=== PATIENT | female | born 1950 | race Asian ===

== ENCOUNTER 2019-12-23 13:53 | Outpatient (CLI) | payer MEDICARE, OTHER | END 2019-12-23 13:54 | disposition home or self-care (01) | LOC: LAB 13:53 | PROVIDERS: ATTEND Ophthalmology | DX: Z01.818 Encounter for other preprocedural examination (principal); H25.811 Combined forms of age-related cataract, right eye; Z20.828 Contact with and (suspected) exposure to other viral communicable diseases ==

== ENCOUNTER 2019-12-26 06:46 | Day surgery (SDC) | payer MEDICARE, OTHER ==
[~2019-12-26 06:46] MED LIST: CYCLOPENTOLATE 1% OPHTH DROPS 2 ML ONE; KETOROLAC 0.45% OPHTH DROPS ONE; PHENYLEPHRINE 2.5% OPHTH 2 ML DROPS ONE; PROPARACAINE 0.5% OPHTH DROPS 15 ML ONE
[2019-12-26] MEDS ORDERED: MIDAZOLAM 2 MG/2 ML VIAL IVP ONE (06:47)
[2019-12-26] MEDS ORDERED: fentaNYL 100 MCG/2 ML VIAL IVP ONE (06:47)
[2019-12-26] MEDS ORDERED: LACTATED RINGERS 500 ML IV ONE ×3 (07:05→08:48)
--- NOTE | 2019-12-26 07:35 | ANESTHESIA ---
Pre-Anesthesia VS, & Labs - Diagnosis RIGHT CATARACT - Procedure Right CATIOL Vital Signs: Temp Pulse Resp BP Pulse Ox 36.0 C L 67 16 133/73 H 100 12/26/19 07:08 12/26/19 07:08 12/26/19 07:08 12/26/19 07:08 12/26/19 07:08 Height 4 ft 11 in Weight (kg) 45.3 kg - NPO >8 hours - Is Patient ?: No - Lab Results Current Lab Results: Laboratory Tests 12/26/19 07:15: POC Whole Bld Glucose 98 Home Medications and Allergies Home Medications: Ambulatory Orders Loratadine [Claritin] 10 mg PO DAILY 12/25/19 Pantoprazole [Protonix] 40 mg PO DAILY 12/25/19 Aspirin [Aspir-Low] 81 mg PO DAILY 01/15/16 Simvastatin 20 mg PO DAILY 01/15/16 Loratadine [Claritin] 10 mg PO DAILY 12/25/19 Pantoprazole [Protonix] 40 mg PO DAILY 12/25/19 Allergies/Adverse Reactions: Allergies Allergy/AdvReac Type Severity Reaction Status Date / Time No Known Drug Allergies Allergy Verified 12/26/19 07:16 Anes History & Medical History - Anesthetic History Anesthesia Complications: reports: No previous complications Family history of Anesthesia Complications: Denies Family history of Malignant Hyperthermia: Denies - Medical History Cardiovascular: reports: High cholesterol Pulmonary: reports: None Gastrointestinal: reports: GERD, Colon polyps Urinary: reports: None Musculoskeletal: reports: None Endocrine/Autoimmune: reports: Type 2 diabetes (DIET CONTROLLED) Skin: reports: None Smoking Status: Never smoker Psychosocial: reports: No issues indicated - Surgical History Gynecologic: Hysterectomy Orthopedic: Knee replacement, Other Exam General: Alert, Oriented x3 Dental: Partials Upper Mouth Opening: Greater than 4 Fingerbreadths Neck Mobility: Normal Mallampati classification: I Thyromental Distance: 4-6 cm Respiratory: Lungs clear Cardiovascular: Regular rate, Normal S1, Normal S2 Plan Anesthesia Type: MAC Consent for Procedure(s) Verified and Reviewed: Yes Code Status: Attempt Resuscitation ASA classification: 2-Mild systemic disease Is this case an emergency?: No
[2019-12-26] MEDS ORDERED: BRIMONIDINE 0.2% OPHTH DROPS 5 ML ONE (07:53)
[2019-12-26] MEDS ORDERED: BSS/LIDOCAINE/EPINEPHRINE 1 ML SYRINGE ONE (07:53)
[2019-12-26] MEDS ORDERED: EPINEPHrine 1 MG/ML AMP ONE (07:53)
[2019-12-26] MEDS ORDERED: VANCOMYCIN OPHTHALMI 8MG/0.8ML 8 MG/0.8 ML SYRINGE IO ONE ×2 (07:53→08:05)
[2019-12-26] MEDS ORDERED: TRIAMCIN/MOXIFLOX OPHTHALMIC 0.6 ML VIAL IO ONE ×2 (07:53→08:06)
[2019-12-26] MEDS ORDERED: TIMOLOL 0.5% OPHTH DROPS ONE (07:53)
[2019-12-26] MEDS ORDERED: CHONDR SULF/HYALURONATE SYRINGE IO ONE (08:03)
[2019-12-26] MEDS ORDERED: EPINEPHrine 1 MG/ML AMP IR ONE (08:03)
[2019-12-26] MEDS ORDERED: BRIMONIDINE 0.2% OPHTH DROPS 5 ML OPTH ONE (08:03)
[2019-12-26] MEDS ORDERED: BSS/LIDOCAINE/EPINEPHRINE 1 ML SYRINGE IO ONE (08:03)
[2019-12-26] MEDS ORDERED: TIMOLOL 0.5% OPHTH DROPS OPTH ONE (08:03)
[2019-12-26] MEDS ORDERED: PROPARACAINE 0.5% OPHTH DROPS 15 ML EACHEYE ONE (08:04)
--- NOTE | 2019-12-26 09:25 | PREOP HISTORY & PHYSICAL ---
DATE OF SERVICE: 12/26/2019 Physician: Roberto Mojica MD PREOPERATIVE DIAGNOSIS: Visually significant cataract, right eye. This was her first cataract surge ry. POSTOPERATIVE DIAGNOSIS: Visually significant cataract, right eye. This was her first cataract surg ryder. OF PROCEDURE: Phacoemulsification with posterior chamber intraocular lens implant, right eye. SURGEON: Roberto Mojica MD ANESTHESIA: Monitored anesthesia care. COMPLICATIONS: None. OPERATIVE INDICATIONS: This is a 69-year-old woman with progressive vision loss in the right eye due to 2-3+ nuclear sclerotic, trace cortical and 2+ posterior subcapsular cataract. Best corrected vis ual acuity was 20/30, with glare to hand motion vision in the right eye. Indications for surgery are overall decrease in vision, difficulty seeing words on a computer screen, difficulty seeing words, c losed caption or game scores on TV, difficulty seeing street signs, difficulty driving in low light o r at night, difficulty driving at night because of headlights from other vehicles, and difficulty wit h glare or bright lights in any situation. She was consented at length concerning risks and benefits of cataract surgery, after which she expressed a desire to proceed with surgery. OPERATIVE PROCEDURE: The patient was taken to OR #3 and placed under monitored anesthesia care. Popeye gical timeout was conducted confirming correct patient, correct procedure, and correct surgical site. She was given topical anesthesia, then prepped and draped in the usual sterile fashion. The eye wa s entered at the 12 and 9 o'clock positions. Intracameral Shugarcaine was injected into the anterior chamber, followed by Viscoat. A continuous-tear curvilinear capsulorrhexis was performed. The nucl eus was hydrodissected and phacoemulsified. Cortex was evacuated using automated infusion and aspira tion. Provisc was injected in the capsular bag, and a 21.5 diopter intraocular lens inserted in the bag. Infusion and aspiration was used to evacuate the viscoelastic materials. The eye was inflated to physiologic pressure using balanced salt solution and found to be watertight. Approximately 0.25 mL of a mixture of triamcinolone and moxifloxacin was injected trans sclerally into the vitreous in t he inferotemporal quadrant. An additional 0.55 mL of a mixture of triamcinolone, moxifloxacin and va ncomycin was injected subconjunctivally in the superior quadrant for infection and inflammation proph ylaxis. Wound integrity was checked with Weck-Verenice sponges. The patient was taken from the Operating Room in good condition and given postoperative instructions. TD: 12/26/2019 08:27
[2019-12-26 11:01] VITALS: BP 117/62
== END 2019-12-26 06:47 | disposition home or self-care (01) ==
LOC: SDS 06:46
PROVIDERS: ATTEND Ophthalmology
PROC: 08RJ3JZ Replacement of Right Lens with Synthetic Substitute, Percutaneous Approach (ICD-10-PCS; principal; 2019-12-26 08:00)
DX: E11.36 Type 2 diabetes mellitus with diabetic cataract (principal); H25.811 Combined forms of age-related cataract, right eye; Z83.511 Family history of glaucoma
CPT/HCPCS: 66984; A9270; J3490; V2632

== ENCOUNTER 2020-01-20 10:21 | Outpatient (CLI) | payer MEDICARE, OTHER | END 2020-01-20 10:22 | disposition home or self-care (01) | LOC: COV 10:21 | PROVIDERS: ATTEND Ophthalmology | DX: Z01.818 Encounter for other preprocedural examination (principal); H25.812 Combined forms of age-related cataract, left eye; Z20.828 Contact with and (suspected) exposure to other viral communicable diseases ==

== ENCOUNTER 2020-01-23 06:41 | Day surgery (SDC) | payer MEDICARE, OTHER ==
[2020-01-23] MEDS ORDERED: EPINEPHrine 1 MG/ML AMP ONE ×2 (06:46→06:48)
[2020-01-23] MEDS ORDERED: BRIMONIDINE 0.2% OPHTH DROPS 5 ML ONE (06:46)
[2020-01-23] MEDS ORDERED: TIMOLOL 0.5% OPHTH DROPS ONE (06:46)
[2020-01-23] MEDS ORDERED: BSS/LIDOCAINE/EPINEPHRINE 1 ML SYRINGE ONE (06:46)
[2020-01-23] MEDS ORDERED: TRIAMCIN/MOXIFLOX OPHTHALMIC 0.6 ML VIAL IO ONE ×2 (06:46→08:05)
[2020-01-23] MEDS ORDERED: VANCOMYCIN OPHTHALMI 8MG/0.8ML 8 MG/0.8 ML SYRINGE IO ONE ×2 (06:47→08:06)
[2020-01-23] MEDS ORDERED: LACTATED RINGERS 1,000 ML IV ONE ×2 (06:50→08:16)
[2020-01-23] MEDS ORDERED: KETOROLAC 0.45% OPHTH DROPS ONE (06:55)
[2020-01-23] MEDS ORDERED: PHENYLEPHRINE 2.5% OPHTH 2 ML DROPS ONE (06:56)
[2020-01-23] MEDS ORDERED: PROPARACAINE 0.5% OPHTH DROPS 15 ML ONE (06:56)
[2020-01-23] MEDS ORDERED: CYCLOPENTOLATE 1% OPHTH DROPS 2 ML ONE (06:56)
--- NOTE | 2020-01-23 07:26 | ANESTHESIA ---
Pre-Anesthesia VS, & Labs - Diagnosis left eye senile combined cataract - Procedure left eye cataract extraction with IOL Vital Signs: Temp Pulse Resp BP Pulse Ox 36.8 C 93 16 130/74 100 01/23/20 06:50 01/23/20 06:50 01/23/20 06:50 01/23/20 06:50 01/23/20 06:50 Height 4 ft 11 in Weight (kg) 45.1 kg - NPO >8 hours - Is Patient ?: No - Lab Results Current Lab Results: Laboratory Tests 01/23/20 07:03: POC Whole Bld Glucose 92 Home Medications and Allergies Aspirin [Aspir-Low] 81 mg PO DAILY 01/15/16 Simvastatin 20 mg PO DAILY 01/15/16 Loratadine [Claritin] 10 mg PO DAILY 12/25/19 Pantoprazole [Protonix] 40 mg PO DAILY 12/25/19 Allergies/Adverse Reactions: Allergies Allergy/AdvReac Type Severity Reaction Status Date / Time No Known Drug Allergies Allergy Verified 12/26/19 07:16 Anes History & Medical History - Anesthetic History Anesthesia Complications: reports: No previous complications - Medical History Cardiovascular: reports: High cholesterol Pulmonary: reports: None Gastrointestinal: reports: GERD (controlled with meds) Urinary: reports: None Neuro: reports: None Musculoskeletal: reports: None Endocrine/Autoimmune: reports: Type 2 diabetes Skin: reports: None Smoking Status: Never smoker Psychosocial: reports: No issues indicated - Surgical History Eyes Ears Nose Throat (EENT): Cataracts Gynecologic: Hysterectomy Orthopedic: Knee replacement Exam General: Alert, Oriented x3, Cooperative, No acute distress Dental: Partials Lower Mouth Openin Fingerbreadth Neck Mobility: Normal Mallampati classification: II Thyromental Distance: greater than 6 cm Mental/Cognitive Status: Alert/Oriented X3, Normal for patient Plan Anesthesia Type: MAC Consent for Procedure(s) Verified and Reviewed: Yes Code Status: Attempt Resuscitation ASA classification: 2-Mild systemic disease Is this case an emergency?: No
[2020-01-23] MEDS ORDERED: MIDAZOLAM 2 MG/2 ML VIAL IVP ONE (07:57)
[2020-01-23] MEDS ORDERED: PROPARACAINE 0.5% OPHTH DROPS 15 ML EACHEYE ONE (08:02)
[2020-01-23] MEDS ORDERED: EPINEPHrine 1 MG/ML AMP IR ONE (08:04)
[2020-01-23] MEDS ORDERED: CHONDR SULF/HYALURONATE SYRINGE IO ONE (08:04)
[2020-01-23] MEDS ORDERED: BRIMONIDINE 0.2% OPHTH DROPS 5 ML OPTH ONE (08:04)
[2020-01-23] MEDS ORDERED: TIMOLOL 0.5% OPHTH DROPS OPTH ONE (08:05)
[2020-01-23] MEDS ORDERED: BSS/LIDOCAINE/EPINEPHRINE 1 ML SYRINGE IO ONE (08:05)
--- NOTE | 2020-01-23 08:43 | OPERATIVE REPORT ---
DATE OF SERVICE: 01/23/2020 Physician: Roberto Mojica MD PREOPERATIVE DIAGNOSIS: Visually significant cataract, left eye. Cataract surgery was performed on the right eye on 12/26/2019. POSTOPERATIVE DIAGNOSIS: Visually significant cataract, left eye. Cataract surgery was performed on the right eye on 12/26/2019. PROCEDURE: Phacoemulsification with posterior chamber intraocular lens implant, left eye. SURGEON: Roberto Mojica MD ANESTHESIA: Monitored anesthesia care. COMPLICATIONS: None. OPERATIVE INDICATIONS: This is a 69-year-old woman with progressive vision loss in the left eye due to a 2 to 3+ nuclear sclerotic, 1 to 2+ cortical and 2+ posterior subcapsular cataract. Best corrected visual acuity was 20/25, with glare to hand motion vision in the left eye. She was consented at length concerning risks and benefits of cataract surgery, after which she expressed a desire to proceed with surgery. OPERATIVE PROCEDURE: Patient was taken to OR #3 and placed under monitored anesthesia care. Surgical timeout was conducted confirming correct patient, correct procedure, and correct surgical site. She was given topical anesthesia, and prepped and draped in the usual sterile fashion. The eye was entered at the 6 and 3-o'clock positions. Intracameral Shugarcaine was injected into the anterior chamber, followed by Viscoat. A continuous-tear curvilinear capsulorrhexis was performed. The nucleus was hydrodissected and phacoemulsified. The cortex was evacuated using automated infusion and aspiration. Provisc was injected in the capsular bag, and a 23.0-diopter intraocular lens was inserted into the bag. Infusion and aspiration was used to evacuate the viscoelastic materials. The eye was inflated to physiologic pressure using balanced salt solution and found to be watertight. Approximately 0.25 mL of a mixture of triamcinolone and moxifloxacin was injected trans sclerally into the vitreous in inferotemporal quadrant. An additional 0.55 mL mixture of triamcinolone, moxifloxacin, and vancomycin was injected subconjunctivally in the superior quadrant for infection and inflammation prophylaxis. Wound integrity was checked with Weck-Verenice sponges. Patient was taken from the operating room in good condition and given postoperative instructions. TD: [facility]23/2020 08[facility]
[2020-01-23 08:46] VITALS: BP 122/60
--- NOTE | 2020-01-23 19:49 | ANESTHESIA POST OP EVALUATION ---
Anesthesia Post Eval - Post Anesthesia Eval Vitals: Last Vital Signs Temp 36.8 C 01/23/20 06:50 Pulse 74 01/23/20 08:45 Resp 16 01/23/20 08:45 BP 122/60 01/23/20 08:45 Pulse Ox 96 01/23/20 08:45 CV Function Including HR & BP: positive: Stable Pain Control: positive: Satisfactory Nausea & Vomiting: positive: Negative Mental Status: positive: Baseline Respiratory Status: Airway Patent Hydration Status: Satisfactory Anesthesia Complications: positive: None
== END 2020-01-23 06:42 | disposition home or self-care (01) ==
LOC: SDS 06:41
PROVIDERS: ATTEND Ophthalmology
DX: E11.36 Type 2 diabetes mellitus with diabetic cataract (principal); H25.812 Combined forms of age-related cataract, left eye; Z98.41 Cataract extraction status, right eye; H18.51 Endothelial corneal dystrophy
CPT/HCPCS: 66984; A9270; J3490; J7120; V2632

== ENCOUNTER 2020-05-25 08:00 | Outpatient (CLI) | payer MEDICARE, OTHER ==
[2020-05-25 22:37] LABS: CANDIDA GROUP DNA NEGATIVE (NEGATIVE); CANDIDA KRUSEI DNA NEGATIVE (NEGATIVE); TRICHOMONAS VAGINALIS DNA NEGATIVE (NEGATIVE)
== END 2020-05-25 23:59 ==
LOC: LAB.S 08:00
PROVIDERS: ATTEND Physician Assistant
DX: N76.0 Acute vaginitis (principal)
CPT/HCPCS: 87661; 87801

== ENCOUNTER 2022-04-07 10:42 | Outpatient (CLI) | payer MEDICARE, OTHER ==
--- NOTE | 2022-04-07 14:12 | XRAY Report ---
PROCEDURE: SI Joints INDICATIONS: SCIATIC PAIN TECHNIQUE: 3 views of the sacroiliac joints were acquired. COMPARISON: None FINDINGS: Bones: Mildly decreased mineralization. No bony erosions or ankylosis. Minimal degenerative spurrin g at the inferior SI joints bilaterally. No suspicious bony lesions. No fractures. Soft tissues: Overlying bowel gas pattern is normal. No suspicious soft tissue densities. IMPRESSION: 1. Minimal bilateral SI joint degeneration. 2. Decreased mineralization. Reviewed by: Dinorah Gregory MD on 04/07/2022 2:11 PM PDT Approved by: Dinorah Gregory MD on 04/07/2022 2:11 PM PDT Station ID: [id number]
--- NOTE | 2022-04-07 14:14 | XRAY Report ---
PROCEDURE: Sacrum/Coccyx INDICATIONS: ACUTE BILATERAL LOW BACK PAIN WITHOUT SCIATICA TECHNIQUE: 3 views of the sacrum and coccyx acquired. COMPARISON: None FINDINGS: Bones: No fractures or dislocations. No suspicious bony lesions. Mild degenerative disc height los s and endplate sclerosis at the L5-S1 level. Mild facet arthropathy at L4-5 and L5-S1. Soft tissues: Visualized bowel gas pattern is normal. No suspicious soft tissue densities. IMPRESSION: 1. Intact sacrum. 2. Degenerative changes in the lumbosacral spine. Reviewed by: Dinorah Gregory MD on 04/07/2022 2:12 PM PDT Approved by: Dinorah Gregory MD on 04/07/2022 2:12 PM PDT Station ID: [id number]
== END 2022-04-07 10:43 | disposition home or self-care (01) ==
LOC: DI.S 10:42
PROVIDERS: ATTEND Hospitalist
DX: M47.898 Other spondylosis, sacral and sacrococcygeal region (principal); M51.37 Other intervertebral disc degeneration, lumbosacral region; M47.816 Spondylosis without myelopathy or radiculopathy, lumbar region; M47.817 Spondylosis without myelopathy or radiculopathy, lumbosacral region

== ENCOUNTER 2022-04-21 13:03 | Outpatient (CLI) | payer MEDICARE, OTHER ==
[2022-04-21 15:53] LABS: CREATININE,URINE 73.6 mg/dL; MICROALBUM/CREATININE RATIO,UR 4.1 ug/mg (<30.0); MICROALBUMIN,URINE 0.3 mg/dL (0-300.0)
== END 2022-04-21 13:04 | disposition home or self-care (01) ==
LOC: LAB.S 13:03
PROVIDERS: ATTEND Hospitalist
DX: E11.9 Type 2 diabetes mellitus without complications (principal); Z13.89 Encounter for screening for other disorder; K21.9 Gastro-esophageal reflux disease without esophagitis; E78.5 Hyperlipidemia, unspecified
CPT/HCPCS: 82043; 82570

== ENCOUNTER 2022-12-11 12:19 | Emergency (ER) | payer MEDICARE, OTHER ==
[2022-12-11 12:28] VITALS: BP 134/72
--- NOTE | 2022-12-11 12:48 | ED Physician Documentation ---
History of Present Illness - Stated complaint Stated Complaint: INSECT BITE - Chief complaint Chief Complaint: Laceration - Additonal information Additional information: Very pleasant 72-year-old female presents here for a bug bite/scratch on her right anterior and lateral ankle that she got 2 days ago when she was picking berries. She is unsure if it was a scratch from thorns or a bite from a bug. However its been intensely pruritic and she has scratched it. Over the last 24 hours she notes that she has increasing redness the very little induration. No pain or fevers. She is here today because she is concerned that it could be infected. Last tetanus was in 2018. No history of diabetes. Otherwise feels well. 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 - Present Medications Home Medications: Ambulatory Orders Medication Instructions Recorded Confirmed Simvastatin 20 mg PO DAILY 01/15/16 01/23/20 cephALEXin [Keflex] 500 mg PO Q6H #28 cap 12/11/22 - Allergies Allergies/Adverse Reactions: Allergies Allergy/AdvReac Type Severity Reaction Status Date / Time No Known Drug Allergies Allergy Verified 12/11/22 12:26 - Social History Does the pt smoke?: No Smoking Status: Never smoker PD ED PE NORMAL - Extremities Extremities: Other (Right lower anterior ankle with what appears to be a superficial scratch with some mild surrounding erythema but no induration. There is some extension of erythema to the lateral ankle. Normal gait and full range of motion of the ankle. No purulent drainage or fluctuance noted.) Results - Vitals Vitals: Vital Signs - 24 hr 12/11/22 12:24 Temperature 36.6 C Heart Rate 77 Respiratory 16 Rate Blood Pressure 134/72 H O2 Saturation 98 Oxygen O2 Source Room air PD Medical Decision Making - ED course Complexity details: d/w patient ED course: Well-appearing 72-year-old female who has up-to-date tetanus presents for swelling and erythema at the site of a superficial scratch sustained 48 hours ago. She reports its been intensely pruritic so she scratched it and since then she has developed some surrounding erythema though no induration or fevers. Clinically it is difficult to tell if the skin reaction is inflammation versus infection. I discussed with the patient conservative watch and see measures versus initiation of antibiotics. She prefers to watch the skin and ankle over the next several days and if not improving then will fill a prescription for Keflex which has been sent to the [facility] in [place]. The usual emergent return precautions for worsening symptoms was discussed. Departure - Departure Disposition: 01 Home, Self Care Clinical Impression: Right ankle swelling, Inflammation, skin Condition: Stable Record reviewed to determine appropriate education?: Yes Prescriptions: cephALEXin [Keflex] 500 mg PO Q6H #28 cap Comments: You do have some redness and swelling on the front of your ankle as well as the lateral side. It is very difficult initially to tell when a bug bite or scratch is inflamed vs being infected. I think it is okay to continue close ob servation over the next 24 to 48 hours. However if you find that you are having any increasing redness beyond the area already there, you begin to have pain or fevers then please immediately fill the prescription for Keflex which has been sent to the [facility] pharmacy in [place].
== END 2022-12-11 13:09 | disposition home or self-care (01) ==
LOC: ED 12:19
DX: L08.9 Local infection of the skin and subcutaneous tissue, unspecified (principal); M79.89 Other specified soft tissue disorders; E11.9 Type 2 diabetes mellitus without complications; E78.00 Pure hypercholesterolemia, unspecified; Z79.899 Other long term (current) drug therapy
CPT/HCPCS: 99282

== ENCOUNTER 2023-07-24 08:06 | Emergency (ER) | payer MEDICARE, OTHER ==
[2023-07-24 08:27] VITALS: O2SAT 100
--- NOTE | 2023-07-24 08:50 | XRAY Report ---
PROCEDURE: Foot 3+V RT INDICATIONS: Trauma TECHNIQUE: 3 views of the foot were acquired. COMPARISON: None. FINDINGS: Bones: Ill-defined lucencies are noted overlying the sesamoid bone at the fifth metatarsal head. Soft tissues: No suspicious soft tissue calcifications or masses. Lateral fifth digit soft tissue edema. IMPRESSION: Lucencies overlying the sesamoid bone at the fifth digit. Fracture is suspected given adjacent soft t issue edema. Reviewed by: Daniela Napoles MD on 07/24/2023 8:49 AM PST Approved by: Daniela Napoles MD on 07/24/2023 8:49 AM PST Station ID: [id number]
--- NOTE | 2023-07-24 09:04 | ED Physician Documentation ---
PD HPI LOWER EXT INJURY - Stated complaint Stated Complaint: RT FOOT PX/SWELLING - Chief complaint Chief Complaint: Ext Problem - History obtained from History obtained from: Patient - History of Present Illness PD HPI LOW EXT INJURY LOCATION: Right, Foot, Toe Type of injury: No: Fall, Twist Timing - onset: How many days ago (3) Timing - duration: Days (3) Timing - details: Gradual onset, Still present (increasingly worse pain but not spreading redness. 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, Hysterectomy - Present Medications Home Medications: Ambulatory Orders Medication Instructions Recorded Confirmed Simvastatin 20 mg PO DAILY 01/15/16 07/24/23 - Allergies Allergies/Adverse Reactions: Allergies Allergy/AdvReac Type Severity Reaction Status Date / Time No Known Drug Allergies Allergy Verified 07/24/23 08:13 - Social History Does the pt smoke?: No Smoking Status: Never smoker Does the pt drink ETOH?: Yes Does the pt have substance abuse?: No - Immunizations Immunizations are current?: Yes - POLST Patient has POLST: No PD ED PE NORMAL - Vitals Vital signs reviewed: Yes - General General: Alert and oriented X 3, Well developed/nourished - Derm Derm: Normal color, Warm and dry, Other (redness with some joint effusion fifth MTP. Redness to dorsum distal foot laterally, and around fifth MTP. Great toe not tender. No skin lesions nor drainage. ) - Neuro Neuro: Alert and oriented X 3, No motor deficit, No sensory deficit Results - Vitals Vitals: Oxygen O2 Source Room air - Labs Labs: Laboratory Tests 07/24/23 07/24/23 09:45 09:45 ESR 21 Uric Acid 4.6 Calcium 9.2 - Rads (name of study) right foot Relevant Findings:: Prelim report reviewed (lucencies over sesamoid base little toe. Soft tissue swelling. Susect fracture. ), EMP independent interpretation of test (I think the main bone is okay but extra bone calcificiations under fifth and great toe more c/w gout tophi or calcific tendonitis rather than fracture. ) PD Medical Decision Making - ED course Complexity details: considered differential (symptoms, onset and no signs of skin lesions to support infection. Xray has calcific lesions under great and fifth toe I think more c/w recurrent mild inflammation. No history of gout but appears like it. ), d/w patient Departure - Departure Disposition: 01 Home, Self Care Clinical Impression: Acute foot pain, Gout Condition: Stable Instructions: ED Arthritis Gout Comments: I do not see any signs of skin wounds to suggest infection in the location and slight improvement of the redness that you described would be more consistent with gout. On your x-ray you do have some calcium buildup around the great toe and little toe areas more suggestive of chronic inflammation or recurrent even though you have not had this clinically noticeable in the past. I do not believe it looks broken. We did give you a dose of a steroid here to initiate treatment. I would suggest anti-inflammatories. You can use [id number] ibuprofen 3 tablets 3 times daily with food for the next several days to week. There are some anti-inflammatories commonly associated with treating of gout but really the studies/articles on it say all anti-inflammatories are effective. Add Tylenol 500 to 650 mg every 4-6 hours if needed as well. We did do some blood tests of a calcium and uric acid levels. Have your primary care follow-up on these to see if you are blood levels are high that may warrant preventive treatment for the future. Otherwise isolated episodes like this may not recur again for a while so I went initiate preventative treatment just yet but more the active treatment for the current condition with the ibuprofen and Tylenol. Recheck if not improving well over the next couple of days we can try other medications. Forms: PCP List Discharge Date/Time: 07/24/23 10:05
[2023-07-24] MEDS: ACETAMINOPHEN 500 MG TABLET PO STA (09:41)
[2023-07-24] MEDS: dexAMETHasone 4 MG TABLET PO STA (09:41)
[2023-07-24 10:02] LABS: CALCIUM 9.2 mg/dL (8.5-10.3); URIC ACID 4.6 mg/dL (2.3-6.6)
[2023-07-24 10:13] VITALS: BP 118/76
== END 2023-07-24 10:05 | disposition home or self-care (01) ==
LOC: ED 08:06
DX: M79.671 Pain in right foot (principal); E11.9 Type 2 diabetes mellitus without complications; E78.00 Pure hypercholesterolemia, unspecified
CPT/HCPCS: 36415; 73630; 82310; 84550; 85651; 99283; 99284; A9270; J8540